=== PATIENT | female | born 1985 ===

== ENCOUNTER 2021-01-09 10:41 | Emergency (ER) | payer OTHER ==
[~2021-01-09] VITALS: Ht 167.6 cm; Wt 75.0 kg
[2021-01-09 11:12] VITALS: TEMP 97.4
[2021-01-09 12:54] LABS: COLLECTION METHOD CLEAN CATCH
[2021-01-09 13:08] LABS: MUCOUS Present /lpf; PH 5 (5-8); SQUAMOUS EPITHELIAL 0-2 /hpf; URINE APPEARANCE Clear; URINE BACTERIA None Seen /hpf; URINE BILIRUBIN Negative (NEGATIVE); URINE BLOOD Negative (NEGATIVE); URINE COLOR Yellow; URINE GLUCOSE Negative (NEGATIVE); URINE KETONE 2+ (NEGATIVE); URINE LEUKOCYTE ESTERASE Negative (NEGATIVE); URINE NITRATE Negative (NEGATIVE); URINE PROTEIN(semi-quant) Negative (NEGATIVE); URINE RBC 0-2 /hpf; URINE UROBILINOGEN Negative (NEGATIVE)
[2021-01-09 13:50] VITALS: BP 110/71; PULSE 63
== END 2021-01-09 13:50 | disposition home or self-care (01) ==
LOC: COL.ER 10:41
PROVIDERS: Emergency Medicine
DX: R10.31 Right lower quadrant pain (principal); Z32.02 Encounter for pregnancy test, result negative; Z88.0 Allergy status to penicillin